=== PATIENT | male | born 1985 | race African-American/Black ===

== ENCOUNTER 2017-07-29 15:42 | Emergency (ER) | payer SELFPAY ==
[~2017-07-29] VITALS: Ht 167.6 cm; Wt 66.0 kg
[2017-07-29] MEDS ORDERED: POVIDONE-IODINE 10% 15 ML SOLUTION UD TP ONE (16:30)
[2017-07-29] MEDS ORDERED: LIDOCAINE HCL 1% 10 ML VIAL INJ ONE (16:30)
[2017-07-29] MEDS ORDERED: PERTUSS(ACELL),DIPH,TET VAC/PF 0.5 ML VIAL IM ONE (16:30)
[2017-07-29 18:05] VITALS: BP 145/88
== END 2017-07-29 18:34 | disposition home or self-care (01) ==
LOC: EMS 15:43
DX: S71.152A Open bite, left thigh, initial encounter (principal); F12.90 Cannabis use, unspecified, uncomplicated; F17.200 Nicotine dependence, unspecified, uncomplicated; W54.0XXA Bitten by dog, initial encounter; Y93.89 Activity, other specified; Y92.89 Other specified places as the place of occurrence of the external cause; Y99.8 Other external cause status
CPT/HCPCS: 12001; 90471; 90715; 99283; J3490

== ENCOUNTER 2017-08-01 10:24 | Emergency (ER) | payer SELFPAY ==
[~2017-08-01] VITALS: Ht 175.3 cm; Wt 67.3 kg
[2017-08-01] MEDS ORDERED: AMOX1TAB15 PO (10:36)
[2017-08-01 11:45] VITALS: BP 127/79
== END 2017-08-01 12:01 | disposition home or self-care (01) ==
LOC: EMS 10:26
DX: Z48.00 Encounter for change or removal of nonsurgical wound dressing (principal); F12.90 Cannabis use, unspecified, uncomplicated; F17.210 Nicotine dependence, cigarettes, uncomplicated
CPT/HCPCS: 99282

== ENCOUNTER 2017-08-08 10:41 | Emergency (ER) | payer SELFPAY ==
[~2017-08-08 10:41] MED LIST: AMOX1TAB15 PO
== END 2017-08-08 10:55 | disposition left against medical advice (07) ==
LOC: EMS 10:44
DX: Z53.21 Procedure and treatment not carried out due to patient leaving prior to being seen by health care provider (principal)